=== PATIENT | male | born 1955 | race Caucasian/White ===

== ENCOUNTER 2019-05-05 01:57 | Observation (INO) | payer OTHER ==
[~2019-05-05] VITALS: Ht 182.9 cm; Wt 95.2 kg
[~2019-05-05 01:57] MED LIST: AMOCLA875 PO; ATOR10 PO; Aspir 8181 MG PO; FOLI1 PO; HYDACE5 PO; IBUP200; LISI20 PO; OXYC10TA19 PO; ROSU5 PO; RXHYDACE PO; Remicade100 MG IV; UBID10 PO
[2019-05-05 03:11] LABS: BASOPHILS ABSOLUTE AUTO 0.04 K/mm3 (0.00-0.23); BASOPHILS PERCENT AUTO 0 % (0-2); EOSINOPHILS ABSOLUTE AUTO 0.15 K/mm3 (0.00-0.68); EOSINOPHILS PERCENT AUTO 1 % (0-6); Hematocrit 44.2 % (37.0-53.0); Hemoglobin 14.4 g/dL (13.5-17.5); IMMATURE GRAN ABSOLUTE AUTO 0.02 K/mm3 (0.00-0.10); IMMATURE GRAN PERCENT AUTO 0 % (0-1); LYMPHOCYTES ABSOLUTE AUTO 2.34 K/mm3 (0.84-5.20); LYMPHOCYTES PERCENT AUTO 21 % (21-46); MONOCYTES ABSOLUTE AUTO 0.91 K/mm3 (0.16-1.47); MONOCYTES PERCENT AUTO 8 % (4-13); Mean Corpuscular HGB 28.9 pg (26.0-34.0); Mean Corpuscular HGB Conc 32.6 g/dL (31.5-36.5); Mean Corpuscular Volume 89 fL (80-100); Mean Platelet Volume 11.2 fL (9.1-12.4); NEUTROPHILS ABSOLUTE AUTO 7.61 K/mm3 (1.96-9.15); NEUTROPHILS PERCENT AUTO 69 % (41-73); Platelet Count 203 K/mm3 (150-400); RDW Coefficient Variation 12.6 % (11.7-14.2); Red Blood Cell Count 4.98 M/mm3 (4.30-5.90); White Blood Cell Count 11.07 K/mm3 (4.00-11.30)
[2019-05-05 03:24] LABS: Alanine Aminotransfer (ALT/SGP 25 U/L (12-78); Albumin, Blood 3.9 g/dL (3.4-5.0); Alk Phos 90 U/L (50-136); Anion Gap 8 mmol/L (6-16); Aspartate Aminotrans (AST/SGOT 18 U/L (12-37); Bilirubin, Total 0.3 mg/dL (0.1-1.0); Blood Urea Nitrogen 16 mg/dL (8-24); Bun/Creatinine Ratio 17.7 (12.0-20.0); CO2, Blood 25 mmol/L (21-32); Calcium, Blood 8.9 mg/dL (8.5-10.1); Chloride, Blood 109 mmol/L (98-108); Globulin, Blood 3.8 g/dL (2.2-4.0); Glomerular Filtration Rate >60 (60-); Glucose, Blood 109 mg/dL (70-99); Potassium, Blood 3.6 mmol/L (3.5-5.5); Sodium, Blood 142 mmol/L (136-145); Total Protein, Blood 7.7 g/dL (6.4-8.2)
--- NOTE | 2019-05-05 04:55 | NUR ---
PT ARRIVED TO ROOM VIA STRETCHER, A/0 X 4, QUIET HE STATES R/T PAIN, WITH PT. PT TRANSFERRED HIMSELF TO BED. VSS.
--- NOTE | 2019-05-05 12:38 | NUR ---
PT TRANSPORTED TO [facility] VIA STRETCHER AT 1228, ACCOMPANY WITH 2 STAFF AND PT'S . PT VOIDED BEFORE TX, IVF DISCONNECTED, #18G RF.
--- NOTE | 2019-05-05 12:56 | NUR ---
History, Chart, Medications and Allergies reviewed before start of procedure.Patient confirms NPO status and agrees with scheduled surgery. Surgical site prepped with 2% Chlorhexidine cloth wipe. Lungs clear T/O to Auscultation. PATIENT'S PERSONAL BELONGINGS LEFT IN HIS ROOM ON SURGICAL FLOOR.
--- NOTE | 2019-05-05 17:57 | NUR ---
PT ARRIVED BACK FROM PACU, GINA CHARGE TOOK REPORT. PT ALERT AND ORIENTED, A BIT SLEEPY AND AROUSES EASY. DENIES ANY PAIN OR NAUSEA. STATES HE FEELS MUCH BETTER THAN BEFORE SURGERY. IV WAS PULLED OUT ACCIDENTAL DURING TX INTO BED. UNABLE TO RESTART AFTER 2 ATTEMPTS. WILL CONT TO TRY. PT TOLERATING SIPS OF CLEARS. VSS, AFIBRILE, SATS 94% ROOM AIR
--- NOTE | 2019-05-05 20:17 | NUR ---
SUMMARY- PT A/O, SLEEPY EASILY AWAKENS. MEDICATED WITH VICODIN FOR PAIN 12/19 AROUND 1829. TOLERATED JELLOW AND WATER AND A SALTINE WITH PILLS. BT HYPOACTIVE. LAP SITES WITH STERI STRIPS. HAS NOT VOIDED SINCE SURGERY STATES HE DOESNT HAVE TO YET. IV GOT PULLED DURING TX TO BED, RESTARTED A #20 RF. STARTED IVF. SCDS IN USE. CALL LIGHT IN REACH, REPORTED TO NOCS.
[2019-05-06 04:32] LABS: BASOPHILS ABSOLUTE AUTO 0.01 K/mm3 (0.00-0.23); BASOPHILS PERCENT AUTO 0 % (0-2); EOSINOPHILS PERCENT AUTO 0 % (0-6); Hematocrit 38.9 % (37.0-53.0); Hemoglobin 12.3 g/dL (13.5-17.5); IMMATURE GRAN ABSOLUTE AUTO 0.05 K/mm3 (0.00-0.10); IMMATURE GRAN PERCENT AUTO 0 % (0-1); LYMPHOCYTES ABSOLUTE AUTO 1.13 K/mm3 (0.84-5.20); LYMPHOCYTES PERCENT AUTO 9 % (21-46); MONOCYTES ABSOLUTE AUTO 0.95 K/mm3 (0.16-1.47); MONOCYTES PERCENT AUTO 7 % (4-13); Mean Corpuscular HGB 28.4 pg (26.0-34.0); Mean Corpuscular HGB Conc 31.6 g/dL (31.5-36.5); Mean Corpuscular Volume 90 fL (80-100); Mean Platelet Volume 11.7 fL (9.1-12.4); NEUTROPHILS ABSOLUTE AUTO 10.68 K/mm3 (1.96-9.15); NEUTROPHILS PERCENT AUTO 83 % (41-73); Platelet Count 190 K/mm3 (150-400); RDW Coefficient Variation 12.9 % (11.7-14.2); RDW Standard Deviation 42.5 fL (35.1-46.3); Red Blood Cell Count 4.33 M/mm3 (4.30-5.90); White Blood Cell Count 12.82 K/mm3 (4.00-11.30)
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
--- NOTE | 2019-05-06 08:05 | NUR ---
pt awake stated his pain is 6/10 for his abd pain 4/10 for his r/a pain pt reports passing some gas no nausea this am cl tray on bedside table pt worried that the norco are not stron enough takes oxy at home will gno dilaudid instead for pain
--- NOTE | 2019-05-06 14:05 | NUR ---
dr price by to see pt
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
--- NOTE | 2019-05-07 09:25 | NUR ---
DISCHARGE PT DISCHARGED HOME FROM UNIT AT APROX 0910. PT GIVEN WRITTEN AND VERBAL DISCHARGE INSTRUCTIONS AND VERBALIZED UNDERSTANDING OF THESE INSTRUCTIONS. IV REMOVED, PT TOLERATED WELL. DENIED WHEELCHAIR TO CAR. INDEPENDENTLY AMBULATED.
--- NOTE | 2019-05-07 10:41 | NUR ---
05/07/19 1041 Yvonne Fitzpatrick AUDITS, VERIFICATIONS.
== END 2019-05-07 09:23 | disposition home or self-care (01) ==
LOC: ER 01:57 → SURS 01:58 → ER 04:38 → SURS 04:38
PROVIDERS: Emergency Medicine; ADMIT Surgery
PROC: BF13YZZ Fluoroscopy of Gallbladder and Bile Ducts using Other Contrast (ICD-10-PCS; principal; 2019-05-05 12:00)
PROC: 0FT44ZZ Resection of Gallbladder, Percutaneous Endoscopic Approach (ICD-10-PCS; principal; 2019-05-05 12:00)
DX: K80.12 Calculus of gallbladder with acute and chronic cholecystitis without obstruction (principal); I10 Essential (primary) hypertension; E78.5 Hyperlipidemia, unspecified; Z79.82 Long term (current) use of aspirin; Z79.899 Other long term (current) drug therapy
CPT/HCPCS: 36415; 74300; 76705; 80053; 83690; 85025; 88304; 93005; 93010; 96361; 96365; 96374; 96375; 99285-25; A9270-GY; C1894; G0008; G0378; J1100; J1170; J1650; J2250; J2370; J2405; J2543; J2550; J2704; J2710; J3010; J7030; J7120

== ENCOUNTER 2020-04-19 16:18 | Emergency (ER) | payer OTHER ==
[~2020-04-19] VITALS: Ht 182.9 cm; Wt 93.0 kg
[2020-04-19 16:57] LABS: BASOPHILS ABSOLUTE AUTO 0.08 K/mm3 (0.00-0.23); BASOPHILS PERCENT AUTO 1 % (0-2); EOSINOPHILS ABSOLUTE AUTO 0.16 K/mm3 (0.00-0.68); EOSINOPHILS PERCENT AUTO 1 % (0-6); Hematocrit 45.8 % (37.0-53.0); Hemoglobin 14.6 g/dL (13.5-17.5); IMMATURE GRAN ABSOLUTE AUTO 0.08 K/mm3 (0.00-0.10); IMMATURE GRAN PERCENT AUTO 1 % (0-1); LYMPHOCYTES ABSOLUTE AUTO 1.71 K/mm3 (0.84-5.20); LYMPHOCYTES PERCENT AUTO 12 % (21-46); MONOCYTES ABSOLUTE AUTO 0.95 K/mm3 (0.16-1.47); MONOCYTES PERCENT AUTO 7 % (4-13); Mean Corpuscular HGB 28.4 pg (26.0-34.0); Mean Corpuscular HGB Conc 31.9 g/dL (31.5-36.5); Mean Corpuscular Volume 89 fL (80-100); Mean Platelet Volume 11.3 fL (9.1-12.4); NEUTROPHILS ABSOLUTE AUTO 11.29 K/mm3 (1.96-9.15); NEUTROPHILS PERCENT AUTO 79 % (41-73); Platelet Count 217 K/mm3 (150-400); RDW Coefficient Variation 12.6 % (11.7-14.2); RDW Standard Deviation 41.7 fL (35.1-46.3); Red Blood Cell Count 5.14 M/mm3 (4.30-5.90); White Blood Cell Count 14.27 K/mm3 (4.00-11.30)
[2020-04-19 17:19] LABS: Alanine Aminotransfer (ALT/SGP 31 U/L (12-78); Albumin, Blood 3.7 g/dL (3.4-5.0); Albumin/Globulin Ratio 0.9 (0.8-1.8); Alk Phos 90 U/L (50-136); Anion Gap 2 mmol/L (6-16); Aspartate Aminotrans (AST/SGOT 20 U/L (12-37); Bilirubin, Total 0.4 mg/dL (0.1-1.0); Blood Urea Nitrogen 16 mg/dL (8-24); Bun/Creatinine Ratio 15.1 (12.0-20.0); CO2, Blood 30 mmol/L (21-32); Calcium, Blood 8.7 mg/dL (8.5-10.1); Chloride, Blood 107 mmol/L (98-108); Creatinine, Blood 1.06 mg/dL (0.60-1.20); Globulin, Blood 4.1 g/dL (2.2-4.0); Glomerular Filtration Rate >60 (60-); Glucose, Blood 88 mg/dL (70-99); Sodium, Blood 139 mmol/L (136-145); Total Protein, Blood 7.8 g/dL (6.4-8.2)
[2020-04-19 19:35] LABS: Source, Urine Voided
[2020-04-19 19:43] LABS: Appearance, Urine Clear (Clear); Bilirubin, Urine Neg (Neg); Blood, Urine Neg (Neg); Color, Urine Yellow (P-Yellow); Glucose Qualitative, Urine Neg (Neg); Ketones, Urine 2+ (Neg); Leukocyte Esterase, Urine Neg (Neg); Nitrite, Urine Neg (Neg); Protein, Urine Neg (Neg); Urobilinogen, Urine NORM (Normal)
== END 2020-04-19 19:47 | disposition home or self-care (01) ==
LOC: ER 16:18
PROVIDERS: Physician Assistant
DX: S00.81XA Abrasion of other part of head, initial encounter (principal); I10 Essential (primary) hypertension; E78.5 Hyperlipidemia, unspecified; Z79.82 Long term (current) use of aspirin; Z79.899 Other long term (current) drug therapy; Z23 Encounter for immunization; W13.2XXA Fall from, out of or through roof, initial encounter
CPT/HCPCS: 70450; 71260; 72125; 74177; 80053; 81003; 85025; 90471; 90714; 99284-25; Q9967

== ENCOUNTER → 2020-10-03 | Outpatient (CLI) | payer OTHER | END | disposition home or self-care (01) | LOC: LAB SHORT 15:17 → PLD 15:17 | DX: D22.5 Melanocytic nevi of trunk (principal); L82.1 Other seborrheic keratosis | CPT/HCPCS: 88305 ==

== ENCOUNTER 2024-02-05 06:37 | Day surgery (SDC) | payer OTHER ==
[2024-02-05] VITALS (14 sets, daily range): BP systolic 87–148; BP diastolic 62–94
[~2024-02-05] VITALS: Ht 182.9 cm; Wt 94.6 kg
[~2024-02-05 06:37] MED LIST changes: +AMLO5; +Lactated Ringer's 1,000 ML IV SCH
[2024-02-05] MEDS ORDERED: propofoL 20 ML IV ONE (06:45)
--- NOTE | 2024-02-05 07:21 | NUR ---
History, Chart, Medications and Allergies reviewed before start of procedure. Ambulatory in Day Surgery. Pre-Op teaching done. Pt verbalizes understanding. Patient States Post-Procedure ride home has been arranged.
--- NOTE | 2024-02-05 07:28 | NUR ---
02/05/24 0728 Yvonne Gutierrez HISTORY, CHART, MEDICATIONS AND ALLERGIES REVIEWED BEFORE START OF PROCEDURE. PATIENT CONFIRMS NPO STATUS AND AGREES WITH SCHEDULED PROCEDURE. 3-LEAD EKG REVIEWED WITH PHYSICIAN PRIOR TO START OF PROCEDURE. MONITOR INTACT WITH CONTINUOUS PULSE OXIMETRY,CAPNOGRAPHY, 3-LEAD EKG, INTERMITTENT BP. SUPPLEMENTAL O2 TO BE TITRATED THROUGHOUT PROCEDURE TO MAINTAIN O2 SATURATION ABOVE 90%. PATIENT DETERMINED TO BE ASA APPROPRIATE FOR PROPOFOL SEDATION PRIOR TO START OF PROCEDURE BY DR. OLSON
--- NOTE | 2024-02-05 08:17 | NUR ---
Discharge instructions reviewed with patient. Patient verbalizes understanding. Copy given to patient to take home. Patient States Post-Procedure ride home has been arranged. Discharged via wheelchair to private car for ride home.
== END 2024-02-05 08:22 | disposition home or self-care (01) ==
LOC: ORSCMMR 06:37 → ORD 07:30 → ORSCMMR 08:22
PROVIDERS: Internal Medicine Gastroenterology
PROC: 0DBP8ZX Excision of Rectum, Via Natural or Artificial Opening Endoscopic, Diagnostic (ICD-10-PCS; principal; 2024-02-05 07:30)
PROC: 0DBM8ZX Excision of Descending Colon, Via Natural or Artificial Opening Endoscopic, Diagnostic (ICD-10-PCS; principal; 2024-02-05 07:30)
DX: Z12.11 Encounter for screening for malignant neoplasm of colon (principal); Z86.010 Personal history of colon polyps; K63.5 Polyp of colon; K62.1 Rectal polyp; I10 Essential (primary) hypertension; Z79.82 Long term (current) use of aspirin; Z79.899 Other long term (current) drug therapy
CPT/HCPCS: 88305; J2704; J7120